=== PATIENT | male | born 1975 | race Caucasian/White ===

== ENCOUNTER → 2019-04-29 16:54 | Outpatient (CLI) | payer OTHER, SELFPAY ==
--- NOTE | 2019-04-29 16:58 | DI.MRI.S_ITS ---
PROCEDURE: MR CERVICAL SPINE WO CON INDICATIONS: Bialteral arm numbness TECHNIQUE: Noncontrast sagittal T1 spin echo and T2 fast spin echo, sagittal STIR, foraminal oblique sagittal T2 fast spin echo, and axial gradient echo or T2 fast spin echo through the cervical spine. COMPARISON: None. FINDINGS: Image quality: Excellent. Alignment and Curvature: Straightening of the normal lordotic curvature. Bone Marrow: Multilevel degenerative endplate sclerosis and spurring. Diffuse facet arthropathy. No acute fracture Spinal Cord: Visualized spinal cord has normal size and signal. No cerebellar tonsillar herniation. Paraspinous Soft Tissues: No paravertebral masses. Prevertebral soft tissues are normal in thickness. C2-C3: Normal appearance. C3-C4: Normal appearance. C4-C5: Normal appearance. C5-C6: Bilateral uncovertebral arthropathy and posterior intervening disc osteophyte complex, and bilateral facet disease. Minimal central canal narrowing. Bilateral moderate foraminal stenosis or nerve root compression. C6-C7: Bilateral uncovertebral arthropathy and posterior intervening disc osteophyte complex, which is asymmetric, left greater than right. Mild left-sided canal narrowing. Mild to moderate right foraminal narrowing. Severe left foraminal stenosis with neurocompression C7-T1: Normal appearance. IMPRESSION: Straightening of the normal cervical lordosis and multilevel disc degeneration, probably most pronounced at C6-C7. No high-grade canal stenosis Bilateral moderate C5-C6 foraminal stenoses. Severe left C6-C7 foraminal stenosis. Dictated by: Jorge Alva M.D. on 04/30/2019 at 8:16 Approved by: Jorge Alva M.D. on 04/30/2019 at 8:20
== END ==
PROVIDERS: Visit Provider Family Medicine
DX: R20.0 Anesthesia of skin (principal); M50.322 Other cervical disc degeneration at C5-C6 level; M48.02 Spinal stenosis, cervical region
CPT/HCPCS: 72141

== ENCOUNTER 2023-05-12 19:13 | Emergency (ER) | payer OTHER, SELFPAY ==
[2023-05-12 19:16] VITALS: BP 123/67; PULSE 79; RESP 16; TEMP 36.7; O2SAT 97; BMI 33.2
[2023-05-12 22:45] VITALS: BP 120/73; PULSE 65; RESP 18; O2SAT 99
--- NOTE | 2023-05-12 22:53 | ED_ITS ---
HPI - Back Pain/Injury General Chief Complaint: Back Pain/Injury Stated Complaint: lt foot swelling/redness/back pain/hand numbness Time Seen by Provider: 05/12/23 22:53 Source: patient and family History of Present Illness HPI Narrative: 47-year-old gentleman presents with multiple musculoskeletal complaints. Over the last 24-48 hours he is noticed acute pain lateral aspect of his left foot and last night his notice that it was increasingly red with hyperemic vessels. Was interfering with his gait. He woke up this morning with significant low back pain and over the course of the day he has been having intermittent episodes of numbness over the lateral aspect of his right hip and distal right thigh. He also notes that over the last number of months he has been having intermittent pain in the anterior proximal thigh that does not seem to be positional. He notes that he did have some sort of significant spine injury when he was in the with abnormal MRIs and CT scans from 17 years ago and has full disability because of this. Two years ago he had an MRI of his cervical spine due to of upper extremity paresthesias and cervical surgery was recommended. He has had carpal tunnel surgery on the right side. He notes that both of his hands will intermittently go numb and he does have occasional neck pain. I did try to get in to see his primary care provider and was told that the weight was 2 months recommended they come to the emergency department given the acute changes in the lateral aspect of the left foot. He has been doing significantly more physical labor over the last couple of weeks and this may be contributing. Related Data Previous Rx's Medication Instructions Recorded dexamethasone 4 mg tablet 10 mg PO DAILY #5 tabs 05/12/23 oxycodone-acetaminophen 5 mg-325 1 tab PO Q6H PRN pain #12 tabs 05/12/23 mg tablet Allergies Allergy/AdvReac Type Severity Reaction Status Date / Time No Known Drug Allergies Allergy Verified 05/12/23 19:16 Review of Systems Review of Systems Narrative: Pertinent positive and negative findings as per HPI Patient History Social History Smoking Status: Never smoker Smoking Status: Never smoker alcohol intake frequency: holidays/special occasions only Substance Use Type: does not use Exam Initial Vital Signs Initial Vital Signs: Vital Signs Temperature 98.1 F 05/12/23 19:16 Pulse Rate 79 05/12/23 19:16 Respiratory Rate 16 05/12/23 19:16 Blood Pressure 123/67 05/12/23 19:16 Pulse Oximetry 97 05/12/23 19:16 Oxygen Delivery Method Room Air 05/12/23 19:16 General: Alert appropriate in no acute distress Neck: No point tenderness along his cervical spine Respiratory: Able to speak in full sentences, no obvious respiratory distress Skin: No obvious rashes, warm and dry Extremities: Minor varicosities in the right lower extremity. No obvious swelling or redness at this time with the left lateral foot. He has been sitting with his legs elevated for a number of hours. No point tenderness along his lumbar spine Neurologic: Grossly intact no obvious asymmetries or abnormalities Psych: appropriate insight and affect, cooperative Course Orders Ordered: Discontinued Medications Dexamethasone (Dexamethasone 10 Mg/Ml Vial) 10 mg PO NOW ONE Stop: 05/12/23 23:47 Last Admin: 05/12/23 23:50 Dose: 10 mg Documented By: Oxycodone/Acetaminophen (Oxycodone/Acetaminophen 5/325 Tablet) 1 tab PO NOW ONE Stop: 05/12/23 23:47 Last Admin: 05/12/23 23:50 Dose: 1 tab Documented By: Vital Signs Vital signs: Vital Signs - 8 hr 05/12/23 19:16 05/12/23 22:45 05/13/23 00:04 Temperature 98.1 F Pulse Rate 79 65 64 Respiratory Rate 16 18 16 Blood Pressure 123/67 120/73 113/78 Pulse Oximetry 97 99 97 Oxygen Delivery Method Room Air Room Air MDM - Back Pain/Injury Lab Data Labs: Urine Dip Bedside Urine Glucose Negative Bedside Urine Bilirubin - Negative Bedside Urine Ketone - Negative Urine Specific [place] 1.010 Bedside Urine Occult Blood - Negative Bedside Urine pH 6.0 Bedside Urine Protein - Negative Bedside Urine Urobilinogen - Negative Bedside Urine Nitrite - Negative Bedside Urine Leukocytes - Negative Esterase MDM Narrative Medical decision making narrative: CC: Left lateral foot pain, low back pain, right L1/L2 paresthesia, neck pain and bilateral hand paresthesias Complicating co-morbidities: Prior history of cervical spine abnormality as well as lumbar spine abnormality Data collected from: patient, Differential considered: Cervical disc disease, lumbar spine disc disease, Exam documented above, pertinent findings include: Essentially resolved area of concern on the lateral aspect of the left foot with no evidence of abscess, bony injury or infection. Treatments: Oral dexamethasone and oral Percocet Discussion: Findings reviewed with the patient. Given his multiple issues I suspect that he likely has some lumbar disc disease that is causing radicular symptoms and cervical spine disease. He describes having an MRI of his cervical spine 3 years ago with follow-up with the [facility] with the orthopedic surgeon immediately talking about the anterior approach to the cervical surgery that he was going to do without explaining the underlying issues. The patient and his did not feel comfortable with the surgeon, this was during early COVID and there has not been follow-up since. On discharge from the he discovered that CT scans and MRIs done early in his career did show a lumbar spine fracture explaining some of the chronic lumbar issues that he is had. He has not had follow-up on this and at some point there had been recommendations for neuromuscular testing. Will give him 3 days of dexamethasone and a small course of Percocet to help with pain control. Referred him back to his primary care provider he does need orthopedic/neurosurgical follow-up and may need nerve conduction studies to fully identify pathology. Discussed findings with patient and his including pictures and descriptions of dermatomes to help them better understand the underlying process. Questions were answered and he is safe for discharge Discharge Plan Departure Patient Disposition: Home Clinical Impression: Acute radicular low back pain, Cervical radicular pain Instructions: DI for Back Pain With Sciatica Activity Restrictions/Additional Instructions: Thank you for coming in tonight I can help with some of the acute pain issues but you really do need to follow- up with your primary care provider and likely going to need additional imaging of both your cervical spine and lumbar spine to lead to definitive diagnoses With your left foot pain, this is in an S1 distribution and I suspect it is actually pain secondary to a pinched nerve in your back. With the right-sided thigh pain I suspect that this is in an L1 or 2 distribution. With your bilateral hand numbness, I am concerned that this is actually from cervical disc issues. For radicular pain (sciatica is radicular low back pain), I am going to give you 3 days of dexamethasone. This is a powerful steroid. You will notice much of the benefits starts on day 3 which is the last day of the dosing and tends to last for over a week. While you are on dexamethasone please do not take any nonsteroidals (like ibuprofen, Motrin, Aleve) Prescriptions have been electronically sent to [facility] Once you are done with the dexamethasone, using 400 mg of ibuprofen (2 [id number] pills) and 1 Tylenol every 6 hours can be very helpful in controlling pain. While you are on the dexamethasone you may find that using 1 Percocet every 6 hours is helpful with pain control. You can also try ice to your low back and or cervical spine and see if this alleviates any of the symptoms. Please call your primary doctor to schedule follow-up for each of these issues. If you find that you are getting worse or develop any new symptoms, please feel free to return to the emergency department for further evaluation. Prescriptions: New oxycodone-acetaminophen 5-325 mg tablet 1 tab PO Q6H PRN (Reason: pain) Qty: 12 0RF dexamethasone 4 mg tablet 10 mg PO DAILY Qty: 5 0RF Referrals: Miscellaneous,Doctor, MD [Primary Care Provider] - Stand Alone Forms: Patient Portal/API
[2023-05-12] MEDS: DEXAMETHASONE 10 MG/ML VIAL PO (23:50)
[2023-05-12] MEDS: OXYCODONE/ACETAMINOPHEN 5/325 TABLET 1 TAB PO (23:50)
[2023-05-13 00:04] VITALS: BP 113/78; PULSE 64; RESP 16; O2SAT 97
== END 2023-05-13 00:05 | disposition home or self-care (01) ==
PROVIDERS: Emergency Provider Emergency Medicine
DX: M54.16 Radiculopathy, lumbar region (principal); M54.12 Radiculopathy, cervical region
CPT/HCPCS: 81003; 99283; J1100